=== PATIENT | female | born 1985 | race African-American/Black ===

== ENCOUNTER 2017-08-30 06:51 | Emergency (ER) | payer OTHER ==
[~2017-08-30] VITALS: Ht 157.5 cm; Wt 122.7 kg
[~2017-08-30 06:51] MED LIST: ALBU2.5V2 IH; QVAR
[2017-08-30] MEDS ORDERED: BECL10.62 IH (07:03)
[2017-08-30] MEDS ORDERED: ALBUTEROL SULFATE 2.5 MG/0.5 ML NEB SOLUTION NEB ONE (08:30)
[2017-08-30] MEDS ORDERED: PredniSONE 20 MG TABLET PO ONE (08:30)
[2017-08-30 08:45] VITALS: BP 119/78
== END 2017-08-30 09:14 | disposition home or self-care (01) ==
LOC: EMS 06:51
DX: J45.901 Unspecified asthma with (acute) exacerbation (principal); J06.9 Acute upper respiratory infection, unspecified; Z87.891 Personal history of nicotine dependence
CPT/HCPCS: 94640; 99283; J7512; J7613

== ENCOUNTER 2019-05-16 06:00 | Emergency (ER) | payer MEDICAID, OTHER ==
[~2019-05-16] VITALS: Ht 157.5 cm; Wt 131.8 kg
[~2019-05-16 06:00] MED LIST changes: +BECL10.62 IH; -QVAR
[2019-05-16] MEDS ORDERED: IPRATROPIUM BROMIDE 0.5 MG/2.5 ML NEB SOLUTION NEB ONE ×2 (06:15→06:45)
[2019-05-16] MEDS ORDERED: ALBUTEROL SULFATE 2.5 MG/0.5 ML NEB SOLUTION NEB ONE (06:15)
[2019-05-16] MEDS ORDERED: ALBUTEROL SULFATE 5 MG/ML 20 ML NEB SOLN [BULK] NEB ONE (06:45)
[2019-05-16] MEDS ORDERED: PredniSONE 20 MG TABLET PO ONE (06:45)
[2019-05-16 08:25] VITALS: BP 130/77
== END 2019-05-16 08:38 | disposition home or self-care (01) ==
LOC: EMS 06:00
DX: J45.901 Unspecified asthma with (acute) exacerbation (principal); Z87.891 Personal history of nicotine dependence
CPT/HCPCS: 94640; 94644; 99285; J7512

== ENCOUNTER 2022-05-05 23:03 | Emergency (ER) | payer BC, MEDICAID ==
[~2022-05-05] VITALS: Ht 157.5 cm; Wt 104.5 kg
[2022-05-06 00:23] LABS: COVID AG,FIA SOURCE NASAL SWAB
[2022-05-06 00:42] LABS: INFLUENZA TYPE A NEGATIVE FOR TYPE A (NEGATIVE); INFLUENZA TYPE B NEGATIVE FOR TYPE B (NEGATIVE)
[2022-05-06] MEDS ORDERED: ALBUTEROL SULFATE 2.5 MG/0.5 ML NEB SOLUTION NEB ONE (00:45)
[2022-05-06] MEDS ORDERED: IPRATROPIUM BROMIDE 0.5 MG/2.5 ML NEB SOLUTION NEB ONE (00:45)
[2022-05-06] MEDS ORDERED: PredniSONE 20 MG TABLET PO ONE (00:45)
[2022-05-06] MEDS ORDERED: AMOX TR/POT CLAV 875 MG/125 MG TABLET PO ONE (01:00)
[2022-05-06] MEDS ORDERED: PRED-554 PO (02:02)
[2022-05-06] MEDS ORDERED: AMOX1TAB16 PO (02:03)
[2022-05-06 02:32] VITALS: BP 122/70
== END 2022-05-06 02:34 | disposition home or self-care (01) ==
LOC: EMS 23:03
DX: H66.92 Otitis media, unspecified, left ear (principal); J45.909 Unspecified asthma, uncomplicated; Z87.891 Personal history of nicotine dependence; Z20.822 Contact with and (suspected) exposure to COVID-19
CPT/HCPCS: 99283; 87426; 87804; 94640; J7512